=== PATIENT | male | born 1945 | race Caucasian/White ===

== ENCOUNTER 2024-01-12 13:15 | Observation (INO) | payer MEDICARE, OTHER, SELFPAY ==
[2024-01-12] VITALS (13 sets, daily range): BP systolic 95–118; BP diastolic 65–94; PULSE 65–83; BMI 26.7; BMI 24.5
[2024-01-12 09:38] LABS: % Basophils 0.8 % (0-2); % Eosinophils 3.5 % (0-6); % Immature Granulocytes 0.3 % (0-0.5); % Lymphocytes 17.5 % (20.5-51.1); % Monocytes 11.6 % (1.7-9.3); % Neutrophils 66.3 % (42.2-75.2); Absolute Basophils 0.1 10^3/uL (0-0.2); Absolute Eosinophils 0.2 10^3/uL (0-0.7); Absolute Lymphocytes 1.2 10^3/uL (1.2-3.4); Absolute Monocytes 0.8 10^3/uL (0.1-0.6); Absolute Neutrophils 4.4 10^3/uL (1.4-6.5); Hematocrit 36.1 % (39.0-52.0); Hemoglobin 12.4 g/dL (13.0-18.0); Mean Corp Hgb Conc. 34.3 g/dL (33.0-37.0); Mean Platelet Volume 9.9 fL (7.4-10.4); Nucleated Red Blood Cells % 0 % (-); Platelet Count 239 10^3/uL (130-400); Red Blood Cell Count 3.88 10^6/uL (4.70-6.10); Red Cell Dist. Width 13.2 % (11.5-14.5); White Blood Cell Count 6.6 10^3/uL (4.8-10.8)
--- NOTE | 2024-01-12 09:50 | ED.GENMED ---
History of Present Illness
General
Chief Complaint: Chest Pain
Source: patient and family
Exam Limitations: none
Time Seen by Provider: 01/12/24 08:45
Nursing documentation reviewed up to this point in time: agreed with
Travel History
Have you had any contact with someone who has COVID-19?: No
Do you have any symptoms of coronavirus? Fever > 100 degrees, chills, cough, shortness of breath, sore throat, loss of taste or smell, muscle aches, or headache?: No
History of Present Illness
History of Present Illness:
79-year-old male AF on Eliquis and Cardizem 180 twice daily follow with Dr. GABRIELLA Harper 10 days ago get up to use the [employer] room at night felt dizzy passed out struck his chest on the wall was covered in sweat no head strike, no neck pain since then has
had intermittent dizziness pain in his chest worse with movement and deep breath, no fever or chills, yesterday his heart rate was in the 1 teens, here is in the 50s, no hemoptysis, hematuria no abdominal pain
Past History
Past History
ED Past Medical History: Arrthythmia, HTN and Hypercholesterolemia
Social History
Tobacco: Non-smoker
Alcohol: None
Drug: None
Living: with family
Employment: Retired
Review of Systems
Review of Systems
All Other Systems: Not applicable
Constitutional: Denies fever or fatigue
EENT: Reports no symptoms
Respiratory: Reports trouble breathing; Denies cough or hemoptysis
Cardiac: Reports chest pain, palpitations and syncope; Denies diaphoresis
ABD/GI: Reports no symptoms; Denies abdominal pain or vomiting
: Reports no symptoms; Denies bleeding
Musculoskeletal: Reports other (Chest wall pain no neck pain)
Neurological: Reports dizzy
Phy Exam
Physical Exam
Physical Exam:
Physical Exam
General: no apparent distress, not acutely ill
Neck: No tongue bite no posterior neck
Heart: Cardiac, reproducible pain in the left anterior chest
Lungs: no acute respiratory distress. clear bilaterally
Abdomen: Soft nontender
Neuro: alert and oriented. no focal neurological deficits
Skin: no rash
Psychiatric: well kept. interactive and cooperative
Extremities: no edema. no calf tenderness.
Scores
Heart Score for Chest Pain Patients
STEMI patient?: No
History: Slightly or Non-Suspicious
ECG: Normal
Age: </= 45 years
Risk Factors: >/= 3 Risk Factors or History of CAD
Troponin: </= Normal Limit
Heart Score for Chest Pain Patients: 2
Heart Score Risk: 2.5% MACE over next 6 weeks
Course
Orders/Labs/Results
Orders:
Orders
01/12/24 Breakfast
Cholesterol Lowering
At Your Request: Full Participation
Cholesterol Lowering: Sodium, 2 Gram
01/12/24 08:28
Electrocardiogram (*1) Urgent
Reason for Study: Chest Pain
EKG- Treatment ONCE
01/12/24 09:32
CBC/With Diff [Complete Blood Count/With Diff] Urgent
Comprehensive Metabolic Panel Urgent
TSH Reflex To Free T4 Urgent
Comment: ADD ON
Troponin I Urgent
01/12/24 10:18
0.9% Sodium Chloride 1000 ml [Nss] 1,000 ml IV BOLUS
01/12/24 10:45
Acetaminophen [Tylenol] 650 mg PO NOW STA
01/12/24 11:12
CR Chest - 2 Views Urgent
Comment:
Reason For Exam: pain p fall
01/12/24 12:46
Admit/Transfer Patient As Directed
Co-Sign Provider:
Level of Care: Observation services
Assign to:: IVU
Physician / Group: AIMEE Mendiola
Diagnosis: chest bennett
01/12/24 12:47
Code Status As Directed
Resuscitation Status: Do not resuscitate
Reached after discussion with pt or family/Healthcare POA: Yes
DNR Bracelet Application ONCE
01/12/24 13:00
CR Ribs-left 2 Vw No Pa Chest Routine
Reason For Exam: left sided chest pain
01/12/24 13:00
CT Head W/o Iv Contrast Routine
Comment:
Reason For Exam: syncope
CARDIOLOGY CONSULT Routine
Consulting Provider: Lizzie Montoya
Was physician already notified: Yes
01/12/24 15:40
0.9% Sodium Chloride 1000 ml [Nss] 1,000 ml IV 100 mls/hr
01/12/24 15:40
Activity As Directed
Activity Level: As Tolerated
INT (Intravenous Needle Therapy) As Directed
Comment: maintain peripheral IV access
Intake/ Output As Directed
Frequency: Per unit guidelines
Orthostatic Vital Signs As Directed
Orthostatic VS Frequency: BID
Vital Signs As Directed
Frequency: q4h
Weight As Directed
Frequency: Daily
Pt Eval And Treat Routine
Activity Level: As Tolerated
01/12/24 16:00
Acetaminophen [Tylenol] 1,000 mg PO TID
01/12/24 16:28
Glycohemoglobin (HgbA1c) Routine
Troponin I Q6H
Comment: at admit & Q3H for 3 total including ED draws, obtain ECG with each level
01/12/24 22:00
Losartan [Cozaar] 50 mg PO HS
01/12/24 22:18
Troponin I Q6H
Comment: at admit & Q3H for 3 total including ED draws, obtain ECG with each level
01/13/24 03:04
Basic Metabolic Panel IN AM
Cardiovascular Evaluation IN AM
Complete Blood Count/No Diff IN AM
01/13/24 08:00
Atorvastatin [Lipitor] 20 mg PO DAILY
Magnesium Oxide 250 mg PO DAILY
Multivitamin [Theragran] 1 tablet PO DAILY
Spironolactone [Aldactone] 12.5 mg PO DAILY
01/14/24 11:00
DC Protocol for Telemetry ONCE
Abnormal Lab Results
01/12/24
09:32
RBC 3.88 L 10^6/uL
(4.70-6.10)
Hgb 12.4 L g/dL
(13.0-18.0)
Hct 36.1 L %
(39.0-52.0)
MCH 32.0 H pg
(27.0-31.0)
Absolute Monos (auto) 0.8 H 10^3/uL
(0.1-0.6)
Lymphocytes % 17.5 L %
(20.5-51.1)
Monocytes % 11.6 H %
(1.7-9.3)
BUN 21 H mg/dl
(9-20)
Glucose 102 H mg/dl
(70-99)
Alkaline Phosphatase 31 L U/L
(38-126)
Total Protein 6.1 L g/dl
(6.3-8.2)
01/12/24 09:32
01/12/24 09:32
Vital Signs
Initial and Last Documented VS:
Initial Vital Signs
Temp Pulse Resp BP Pulse Ox
97.8 F 56 18 104/70 97
01/12/24 08:36 01/12/24 08:36 01/12/24 08:36 01/12/24 08:36 01/12/24 08:36
Last Documented Vital Signs
Temp Pulse Resp BP Pulse Ox
97.8 F 87 20 122/97 97
01/13/24 11:55 01/13/24 13:30 01/13/24 11:55 01/13/24 11:56 01/13/24 11:55
MDM/Problems Addressed
Differential Diagnosis Includes:
Syncope heart block rib contusion pneumothorax possible ACS PE unlikely
MDM/Problems Addressed:
Chest pain shortness of breath syncope
Chronic conditions affecting care: Arrhythmia
Acute Exacerbation and/or Progression of Chronic Illness: Arrhythmia
*Radiology
Radiology exam reviewed: preliminary read by ED provider
*Pulse Oximetry
Patient hypoxic: no
*EKG
Interpreted by ED Provider?: Yes
Interpretation: abnormal
Comparison EKG: changes noted
Heart Rate: 48
Rate: bradycardiac
Rhythm: a-fib
Ischemia: non-specific ST changes
*Systems Development Manager Interpretation
Rate: bradycardiac
Interpretation: abnormal
Heart Rate: 48
Rhythm: a-fib
*Critical Care Note
Total Time (30-74mins, 75-104mins- exclusive of procedures): Not Applicable
Update Note
Update Note:
1210 chest x-ray noted labs noted cardiac monitor technician noted persistently with slow AF had a documented syncope is on calcium channel rupinder I believe it would be beneficial to admit him to a monitored bed, let his meds washout, consideration for
specialty consultations. Feel he had some tachycardia earlier
ED Attending Note
-
Portions of this chart may have been created with voice recognition software.� Occasional wrong word or��sound alike� substitutions may have occurred due to the inherent limitations of voice recognition software.
Discharge Plan
Departure
Patient Disposition: Admit
Date of Disposition: 01/12/24
Time of Disposition: 12:11
Admit to: Telemetry
Presentation/result/management discussed w/ accepting MD/DO: Hospitalist
Patient with high blood pressure during this ER visit?: No
Condition: Fair
Discharge Problem:
Syncope and collapse, Atrial fibrillation, Hypotensive episode
Interventions
Interventions:
*Risk Screen - Suicide Last Done: 01/12/24 08:47
*General Assessment Last Done: 01/12/24 08:47
*Neglect/Abuse Screening Last Done: 01/12/24 08:47
ED- Fall Risk Assessment Last Done: 01/12/24 10:57
*ED COVID-19 Vaccine History Last Done: 01/12/24 08:47
*Nursing Disposition Last Done: 01/12/24 15:46
ED- Cardiac Assessment Last Done: 01/12/24 08:47
Discharge Date and Time
Discharge Date/Time: 01/12/24 15:46
[2024-01-12 09:51] LABS: ALT (SGPT) 18 U/L (0-50); AST (SGOT) 24 U/L (17-59); Albumin 3.6 g/dl (3.5-5.0); Alkaline Phosphatase 31 U/L (38-126); Blood Urea Nitrogen 21 mg/dl (9-20); Calcium 8.6 mg/dl (8.4-10.2); Carbon Dioxide 26 mmol/L (22-30); Chloride 107 mmol/L (98-107); Estimated Creatinine Clearance 71 ml/min; Glucose 102 mg/dl (70-99); Potassium 4.6 mmol/L (3.5-5.1); Sodium 135 mmol/L (135-145); Total Bilirubin 0.6 mg/dl (0.2-1.3); Total Protein 6.1 g/dl (6.3-8.2); eGFR > 60.00
[2024-01-12 10:03] LABS: Troponin I < 0.012 ng/ml
[2024-01-12] MEDS: NSS 1000 IV ×2 (10:21→16:03)
[2024-01-12] MEDS: TYLENOL 650 MG PO (10:48)
--- NOTE | 2024-01-12 12:19 | HPS.HSE ---
Addendum entered and electronically signed by Zeeshan Muniz MD 01/12/24 13:40:
I saw and examined the patient.
The BALANCE BRIDGE ASSEMBLER's note was reviewed and I agree with the note.
Comment:
I saw and examined the patient.
The BALANCE BRIDGE ASSEMBLER's note was reviewed and I agree with the note.
Comment:
79-year-old male past medical history of permanent atrial fibrillation is presenting from home with left-sided chest pain. Patient had episode of syncope 10 days ago where he had a loss of consciousness for few seconds subsequently afterwards he
was found to be diaphoretic. Patient dates that he had his chest on the wall of the furniture. Patient stated last night his pain got worse. Patient stated was seen by his video game technician outpatient recently and plan was to decrease dose of Cardizem.
General:�Well Developed, Well Nourished and No Apparent Distress
HEENT:�NormoCephalic, Moist mucous membranes and Atraumatic
Respiratory:�Clear
Cardiac:�Irregular Rhythm and Bradycardia; No Murmur or Rub
GI:�Soft, Non Tender, Non Distended and Normal Bowel Sounds; No Organomegaly
Rectal:�Deferred by Provider
Musculoskeletal:�No Clubbing, No Cyanosis and No Edema
Skin:�No Rash
Neuro:�AO x 3 and Nonfocal/grossly intact
Psych:�Calm
Impression
Syncope likely multifactorial due to bradycardia versus orthostatic hypotension versus rule out arrhythmia
Left-sided chest pain likely secondary to rule out ACS and rule out rib fractures
Permanent atrial fibrillation
Primary hypertension
hyperlipidemia
chronic coagulopathy with Eliquis
Plan
Check CT of the head
Check left-sided rib cage imaging study
Hold AV denis rupinder agents
Restart Eliquis if CT negative
Check orthostatics
Trend ammonia
Monitor on telemetry
Start gentle IV fluids
Continue Lipitor
DVT ppx-eliquis
Original Note:
Family Physician
-
Family Physician: Sonido Quinn
Chief Complaint
-
chest pain
History of Present Illness
79-year-old male AF on Eliquis and Cardizem 180 twice daily,HEENT hypertension, hyperlipidemia, hypertension, hyperlipidemia follow with Dr. GABRIELLA Harper presented to us with left sided chest pain for past ten days since the fall . patient got up to use
the bathroom 10 days ago, he felt dizzy, lightheaded and fell. he lost the level of consciousness. he was sweating. his woke him up. he hit chest on the wall or the furniture. he was taking aleve and Tylenol with some relief in his symptoms.
last night his pain got worse. worse with moving which prompted him to come to the ER. patient stated short of breath this morning. Patient denied hitting his head. Patient denied runny nose, congestion, cough. Patient denied any fever, chills.
Patient denied abdominal pain, nausea, vomiting. Stated chronic diarrhea. Denied dysuria hematuria. Patient stated right-sided testicular pain 10 days ago, patient not sure if the pain caused him to faint. He does not have testicular pain
anymore. Patient stated his heart rate was in 100s last night.
On arrival to ER patient was hypotensive, bradycardia. Chest x-ray with no acute disease. Admitting for further management.
Medical History
Past Medical History
Past Medical History: Reports Other
Additional Past Medical History:
Permanent A-fib
Hypertension
Hyperlipidemia
Past Surgical History: Reports Other
Additional Past Surgical History:
Sinus surgery
Social History
Tobacco: Non-smoker
Alcohol: Occasional
Drug: None
Personal:
Living: With Family
Family History
Family History: Not pertinent
Allergies / Home Medications
Allergies reflects when Allergies were last updated in [facility].
Home Medications with original date entered in [facility]
Allergy/Medication List:
Allergies
Allergy/AdvReac Type Severity Reaction Status Date / Time
amiodarone Allergy Intermediate Shortness Verified 01/12/24 08:36
of Breath
carvedilol AdvReac Severe toxicity Verified 01/12/24 08:36
Home Medications
magnesium oxide 250 mg PO DAILY 07/09/11
apixaban 5 mg tablet (Eliquis) 5 mg PO BID 02/21/19
spironolactone 25 mg tablet 12.5 mg PO DAILY 04/02/20
atorvastatin 20 mg tablet 20 mg PO DAILY 01/12/24
diltiazem HCl 180 mg capsule,extended release 24 hr, controlled (DILT-XR) 180 mg PO BID 01/12/24
losartan 50 mg tablet 50 mg PO HS 01/12/24
therapeutic multivitamin 1 tab PO DAILY 01/12/24
Review of Systems
-
Constitutional: Reports No Symptoms
EENT: Reports No Symptoms
Respiratory: Reports Trouble Breathing
Cardiac: Reports Chest Pain
Abdomen/GI: Reports No Symptoms
: Reports Other (Pain)
Musculoskeletal: Reports No Symptoms
Skin: Reports No Symptoms
Neurological: Reports No Symptoms
Endocrine: Reports No Symptoms
Hematologic/Lymphatic: Reports No Symptoms
Psych: Reports No Symptoms
Physical Exam
Vital Signs
Vital Signs
Temp Pulse Resp BP Pulse Ox
97.8 F 50 23 103/80 97
01/12/24 08:36 01/12/24 12:11 01/12/24 12:11 01/12/24 12:11 01/12/24 10:45
Physical Exam
General: Well Developed, Well Nourished and No Apparent Distress
HEENT: NormoCephalic, Moist mucous membranes and Atraumatic
Respiratory: Clear
Cardiac: Irregular Rhythm and Bradycardia; No Murmur or Rub
GI: Soft, Non Tender, Non Distended and Normal Bowel Sounds; No Organomegaly
Rectal: Deferred by Provider
Musculoskeletal: No Clubbing, No Cyanosis and No Edema
Skin: No Rash
Neuro: AO x 3 and Nonfocal/grossly intact
Psych: Calm
Laboratory Results
-
01/12/24 09:32
01/12/24 09:32
Laboratory Results
Total Bilirubin 0.6 mg/dl (0.2-1.3) 01/12/24 09:32
AST 24 U/L (17-59) 01/12/24 09:32
ALT 18 U/L (0-50) 01/12/24 09:32
Alkaline Phosphatase 31 U/L (38-126) L 01/12/24 09:32
Troponin I < 0.012 ng/ml 01/12/24 09:32
Data Reviewed
-
Diagnostic Radiology: Report Reviewed by me
Lab Data: Labs Reviewed by me
Impression/Plan
-
#atrial fibrillation with slow RVR
-EKG with atrial fib with slow RVRs
-HR in 50's
-Hold diltiazem
-Eliquis hold until CT head resulted
-cardiology consulted
#left sided chest pain likely muscular
-trop negative
-continue to trend trop
-chest xay negative
-obtain rib cage x ray
-Tylenol ATC for pain
#syncope unclear cause
-Obtain orthostatics
-CT head pending
-PT consult
#hypotension/history of essential hypertension
-low blood pressure on arrival, improved
-Continue losartan with parameters
-Spironolactone continued with parameters
# Hyperlipidemia
-Statin continued
# DVT prophylaxis
-scd
# CODE STATUS
-DNR
--- NOTE | 2024-01-12 15:24 | CON.CAR ---
Addendum entered and electronically signed by Crissy Barnhart MD 01/12/24 16:50:
I saw and examined the patient.
The Form Maker's note was reviewed and I agree with the note.
Comment: Briefly, Mr. Fuller is a 79-year-old gentleman with past medical history of permanent atrial fibrillation, multiple prior PVI's, most recently in 2019, on chronic anticoagulation with Eliquis, prior history of a nonischemic cardiomyopathy,
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 Patient tells me that
upon trying to get out of bed to go to the bathroom he had some lightheadedness and then passed out transiently. He tells me he has had multiple prior episodes similar to this. He did not pass out while waiting but on his way back. He fell
forward and thinks he may have hurt his chest however denies hurting his head. His imaging including head CT, rib x-ray and chest x-ray did not show any concerns for any acute fractures. His chest discomfort is very positional in nature with a
pleuritic component. He denies any exertional component to it. Cardiology was consulted after an EKG in the emergency department showed atrial fibrillation with a slow ventricular rate.
Vital signs and lab work is reviewed. Initial troponin is negative. ECG with no acute ischemic changes. Patient is a pleasant older gentleman in no acute distress, ANO x 3, normal S1 and S2, no significant murmurs, rubs or gallops, lungs are
clear to auscultation, I was not able to reproduce chest wall tenderness, abdomen is soft, nontender, nondistended, warm extremities without significant edema.
Recommendations:
1. We will check orthostatic vital signs.
2. Continue to monitor on telemetry. We will decrease his Cardizem to a lower dose. So far there is no evidence of heart block or severe bradycardia that is symptomatic. For now we will continue his home anticoagulation given no active signs
concerning that he needs a permanent pacemaker for now.
3. We will check a more up-to-date echocardiogram to reassess biventricular function and his valves.
Crissy Barnhart MD, [facility], [facility]
Original Note:
Consultation
Consultation Request
Date/Time Consultation Performed: 01/12/24
Requesting Provider: Dr. Muniz
Performing Provider: Greer Brian PA-C for Dr. Montoya
Reason for Consultation: syncope, bradycardia, CP
Medical History
-
Chief Complaint: CP
History of Present Illness:
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
who had a syncopal event approximately 10 days ago. He states that in the middle of the night he got up to go to the bathroom and felt dizzy however made it into the bathroom. Upon walking back to his bed, he passed out and hit some furniture. He
did not seek medical attention immediately after the event. Morning after he states he had some testicular pain which is still present although not as severe as initially. He reported since then he has continued with some left-sided chest
discomfort, which has gotten worse over the last day or so causing him to come in to the ER for evaluation. He reports the pain is jabbing in nature, and occurs when he takes a deep breath or when he moves. On arrival in the ER was noted to have
some bradycardic heart rates in the 50s. Last night he reported his heart rate was in the 110s at home. On Cardizem CD 180 mg p.o. BID. Reports chest discomfort improved s/p tylenol. Cardiology consulted for evaluation
PMH:
Permanent atrial fibrillation
History of pulmonary vein isolation 2016, 2018, 2019
Chronic anticoagulation with Eliquis
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
Hypertension
Hypercholesterolemia
Past Medical History
Past Medical History: Other (in HPI)
Social History
Tobacco: Non-Smoker
Alcohol: Occasional
Personal:
Living: With Family
Employment: Retired
Allergies / Home Medications
Allergy/AdvReac Type Severity Reaction Status Date / Time
amiodarone Allergy Intermediate Shortness Verified 01/12/24 08:36
of Breath
carvedilol AdvReac Severe toxicity Verified 01/12/24 08:36
Medication Instructions Recorded Confirmed Type
magnesium oxide 250 mg PO DAILY Electrolyte 07/09/11 01/12/24 History
Repletion
apixaban 5 mg tablet (Eliquis) 5 mg PO BID Blood Clot 02/21/19 01/12/24 History
Prevention/Tx
spironolactone 25 mg tablet 12.5 mg PO DAILY Heart Failure 04/02/20 01/12/24 History
atorvastatin 20 mg tablet 20 mg PO DAILY High Cholesterol 01/12/24 01/12/24 History
diltiazem HCl 180 mg 180 mg PO BID Arrhythmia 01/12/24 01/12/24 History
capsule,extended release 24 hr,
controlled (DILT-XR)
losartan 50 mg tablet 50 mg PO HS Heart Failure 01/12/24 01/12/24 History
therapeutic multivitamin 1 tab PO DAILY Supplement 01/12/24 01/12/24 History
Review of Systems
-
History Source: Patient
All other systems: Negative unless noted
Physical Exam
Vital Signs
Temp Pulse Resp BP Pulse Ox
97.8 F 55 16 105/65 97
01/12/24 08:36 01/12/24 15:17 01/12/24 15:17 01/12/24 15:16 01/12/24 10:45
Lab Results
01/12/24 09:32
01/12/24 09:32
Troponin I < 0.012 ng/ml 01/12/24 09:32
Physical Exam
General: No Apparent Distress and Comfortable
HEENT: Normocephalic, Anicteric and Moist Mucous Membranes
Respiratory: Clear and Non Labored Respirations
Cardiac: S1/S2 and Irregular Rhythm
GI: Soft, Non Tender, Non Distended and Normal Bowel Sounds
Musculoskeletal: No Clubbing, No Cyanosis and No Edema
Skin: Warm and Dry
Neuro: AO x 3
Impression / Plan
-
Primary Cupola Patcher: Dr. GABRIELLA Harper
Assessment:
Presentation with L sided chest pain
Negative trop x1
Bradycardia
Recent syncopal episode ~10 days ago
Permanent atrial fibrillation
History of pulmonary vein isolation 2016, 2018, 2019
Chronic anticoagulation with Eliquis
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
Hypertension
Hypercholesterolemia
ECHO 12/09/2021: EF 57%, moderate concentric LVH, mild MR
Plan:
-Patient presents with left-sided chest discomfort in the setting of recent syncopal episode. Was noted to be bradycardic in A-fib in the ER. no present dizziness
-chest Xray without clear rib fractures. head CT negative for acute abnormality
-reports CP improved s/p tylenol
-Troponin negative x 1
-EKG A-fib with slow ventricular response
-Chest discomfort suspected musculoskeletal as worsening with movement and inspiration
-Follow on telemetry
-Check echo
-Check TSH
-Hold outpatient Cardizem. He has previous intolerance to carvedilol and amiodarone
-Check orthostatic vital signs
-May consider outpatient classroom monitor upon discharge
Data Reviewed
-
EKG: Tracing Personally Visualized and interpreted
Radiology: Report Reviewed by me
CT Scan: Report Reviewed by me
Medical Tests (Nuc Med, Echo etc): Report Reviewed by me
Labs: Labs Reviewed by me
Old Records: Reviewed
--- NOTE | 2024-01-12 16:00 | PTCARENOTE ---
Pt received from ED via stretcher. AOx3. Orthostatic VS obtained, no tilt. Walked to BR w/ standby assist, denies feeling lightheaded, denies CP. Slightly tender to palpation L upper chest, reports 11/23. Denies SOB, 98% on RA. A fib on the monitor
60-70's. Full assessment and admission as documented.
[2024-01-12] MEDS: TYLENOL 1000 MG PO ×2 (16:02→22:12)
[2024-01-12 17:00] LABS: Troponin I < 0.012 ng/ml
[2024-01-12 17:01] LABS: TSH Reflex To Free T4 3.81 uIU/ml (0.47-4.68)
[2024-01-12] MEDS: ELIQUIS 5 MG PO (20:09)
[2024-01-12] MEDS: COZAAR 50 MG PO (22:12)
[2024-01-12 22:49] LABS: Troponin I < 0.012 ng/ml
[2024-01-13] VITALS (11 sets, daily range): BP systolic 113–139; BP diastolic 94–106; PULSE 80–93; O2SAT 95; BMI 24.3
--- NOTE | 2024-01-13 00:43 | PTCARENOTE ---
Received pt at handoff. AOX3. Tele- Afib. HR 60-80s. Assessment noted as documented. NSS 100ml/hr infusing. Pt ambulatory to bathroom w/ standby assist. Offers no complaints of dizziness/discomfort. Currently in bed; call lundy w/in reach.
[2024-01-13] MEDS: NSS 1000 IV (01:28)
[2024-01-13 03:36] LABS: Hemoglobin 12.8 g/dL (13.0-18.0); Mean Corp Hgb Conc. 34.6 g/dL (33.0-37.0); Mean Corpuscular Hgb 32.5 pg (27.0-31.0); Mean Corpuscular Volume 93.9 fL (80.0-94.0); Mean Platelet Volume 10.6 fL (7.4-10.4); Platelet Count 237 10^3/uL (130-400); Red Blood Cell Count 3.94 10^6/uL (4.70-6.10); Red Cell Dist. Width 13.1 % (11.5-14.5)
[2024-01-13 04:00] LABS: Blood Urea Nitrogen 18 mg/dl (9-20); Calcium 8.6 mg/dl (8.4-10.2); Carbon Dioxide 24 mmol/L (22-30); Chloride 110 mmol/L (98-107); Estimated Creatinine Clearance 80 ml/min; Glucose 92 mg/dl (70-99); HDL Cholesterol 47 mg/dl; LDL Cholesterol, Calculated 53 mg/dl; Potassium 4.5 mmol/L (3.5-5.1); Sodium 137 mmol/L (135-145); Total Cholesterol 116 mg/dl (50-199); Triglyceride 83 mg/dl (10-149); Very Low Density Lipoprotein 16 mg/dl (0-30); eGFR > 60.00
[2024-01-13 04:49] LABS: Hepatitis C Antibody Negative (Negative)
--- NOTE | 2024-01-13 08:08 | W.PN.CARDCBS ---
Addendum entered and electronically signed by Greer Brian PA-C 01/13/24 13:38:
echo without significant change compared to prior, EF preserved.
increase cardizem cd to 120mg BID. stop OP losartan
arranged for OP Bardy monitor to be placed in office on Monday 01/15
Original Note:
Today's Communication / Plan
-
Await echo
Stop losartan
May need to increase diltiazem
Outpatient monitor
Anticipate discharge later today pending echo
Impression / Plan
-
Primary Appellate Conferee: Dr. GABRIELLA Harper
Assessment:
Presentation with L sided chest pain
Permanent atrial fibrillation
Recent syncopal episode ~10 days ago, suspect vagally mediated/possible micturition syncope
History of pulmonary vein isolation 2016, 2018, 2019
Chronic anticoagulation with Eliquis
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
Hypertension/possibly hypotensive on losartan
Hypercholesterolemia
ECHO 12/09/2021: EF 57%, moderate concentric LVH, mild MR
Plan:
He presents with syncope from 2 weeks ago resulting in a chest wall injury. He was bradycardic upon presentation here in the emergency department on diltiazem ER 360 mg a day, in the setting of chest pain, but his only episode of lightheadedness
was 2 weeks ago in the setting of pain, and I think a vagal mechanism/micturition syncope may have been the operative medicine mechanism rather than bradycardia from diltiazem, as he reports that his heart rate had been well-controlled on diltiazem
ER 180 mg twice daily. In addition he was relatively hypotensive at the last office visit, on losartan.
.
We will await his echocardiogram.
.
I will stop his losartan at the present time, and he may need higher dose of diltiazem at discharge. Will arrange for an outpatient monitor and outpatient follow-up.
He still has vague discomfort in his right testicle, which was present at the time of his syncope. Defer to hospitalist whether or not this requires investigation.
Anticipate discharge later today. Will need to decide proper diltiazem dose. Will discharge him off losartan.
Progress Note - Appellate Conferee
Subjective
Date of Service: January 13, 2024:
Some chest discomfort, but not severe, minimal residual awareness of right testicle
Allergies: Amiodarone and carvedilol
Home meds: Atorvastatin 20 mg a day, diltiazem ER 180 mg twice daily, Eliquis 5 mg twice daily, losartan 50 mg daily, magnesium oxide, spironolactone 12.5 mg daily and multivitamins
Current meds atorvastatin 20 mg daily, losartan 50 mg at bedtime, magnesium, spironolactone 12.5 mg daily, apixaban 5 mg twice daily, diltiazem ER 120 mg daily
PMH/PSH/SH/FH: Reviewed
Review of systems: Negative except as above
Hemoglobin 12.8, platelets 237, potassium 4.5, BUN/creatinine 18 and 0.86, GFR greater than 60, undetectable troponin, proBNP pending
Telemetry: No pauses, heart rate now at the upper limit of acceptable
Diltiazem had been 360 mg a day, now 120 mg a day
Objective
Labs:
01/13/24 03:04
01/13/24 03:04
Labs
Hgb 12.8 g/dL (13.0-18.0) L 01/13/24 03:04
Hct 37.0 % (39.0-52.0) L 01/13/24 03:04
Plt Count 237 10^3/uL (130-400) 01/13/24 03:04
Sodium 137 mmol/L (135-145) 01/13/24 03:04
Potassium 4.5 mmol/L (3.5-5.1) 01/13/24 03:04
BUN 18 mg/dl (9-20) 01/13/24 03:04
Creatinine 0.8 mg/dL (0.7-1.3) 01/13/24 03:04
Glucose 92 mg/dl (70-99) 01/13/24 03:04
Troponins
01/12/24 01/12/24 01/12/24
09:32 16:28 22:18
Troponin I < 0.012 < 0.012 < 0.012
Vital Signs and I&O:
Vital Signs
Temp Pulse Resp BP Pulse Ox
36.3 C 69 16 113/95 96
01/13/24 03:10 01/13/24 03:30 01/13/24 03:10 01/13/24 02:58 01/13/24 03:10
Vital Signs
Temp Pulse Resp BP Pulse Ox
36.3 C 69 16 113/95 96
01/13/24 03:10 01/13/24 03:30 01/13/24 03:10 01/13/24 02:58 01/13/24 03:10
Intake & Output
01/11/24 01/12/24 01/13/24 01/14/24
07:59 07:59 07:59 07:59
Intake Total 680 / 680
Balance 680 / 680
Physical Exam
Physical Exam
113/95, pulse 69, respirate 16, afebrile
No acute distress, heart rate now 100, head neck exam unremarkable, lungs are clear, cardiac regular rate and rhythm, no obvious murmurs, abdomen benign extremities without clubbing cyanosis or edema, pulses intact, neuro nonfocal
[2024-01-13] MEDS: MAGNESIUM OXIDE 250 MG PO (08:42)
[2024-01-13] MEDS: LIPITOR 20 MG PO (08:42)
[2024-01-13] MEDS: ALDACTONE 12.5 MG PO (08:43)
[2024-01-13] MEDS: ELIQUIS 5 MG PO (08:43)
[2024-01-13] MEDS: CARDIZEM CD 120 MG PO (08:43)
[2024-01-13] MEDS: THERAGRAN 1 TABLET PO (08:43)
[2024-01-13] MEDS: TYLENOL PO (08:43)
--- NOTE | 2024-01-13 10:35 | PTOTSP ---
Pt is independent and at functional baseline. PT will sign off.
[2024-01-13 11:15] LABS: Glycohemoglobin (HgbA1c) 6.2 % (4.0-5.6)
--- NOTE | 2024-01-13 12:29 | W.PN.HOSP.TC ---
Addendum entered and electronically signed by Zeeshan Muniz MD 01/13/24 13:30:
Patient echocardiogram results noted. Case discussed with Dr. Harper tile power shear operator. Okay to discharge patient home. Cardiology recommended discontinue losartan and continue patient on Cardizem at 120 mg and increase frequency to twice daily.
Outpatient Holter monitor will be arranged by cardiology.
More than 30 minutes spent in discharge including
Final examination of the patient
Summarizing hospital stay
Instructions for continuing care to all relevant caregivers
Preparation of discharge records, prescriptions, and referral forms
Total time spent (in minutes): 45
Original Note:
Today's Communication/Plan
-
await ECHO
Monitor BP/HR
DC losartan
Assessment / Plan
Assessment / Plan
#atrial fibrillation with slow RVR
-EKG with atrial fib with slow RVRs
-HR now elevated and cardizem restarted at 120mg
-Cont eliquis
-cardiology consulted
#left sided chest pain likely muscular
-trop negative
-continue to trend trop
-chest� xay negative
-obtain rib cage x ray-neg for rib fx
-Tylenol ATC for pain
#syncope likely 2/2 orthostatic vs.micturition syncope vs bradycarida
-CT head negative.
-PT consult
-Orthos neg now. s/p IVF.
-Trop noted.
-ECHO ordered and pending.
-cards on board.
#hypotension/history of essential hypertension
-low blood pressure on arrival, improved
-DC losartan
-Spironolactone continued with parameters
# Hyperlipidemia
-Statin continued
# DVT prophylaxis
-scd
# CODE STATUS
-DNR
Anticipated Discharge: Within 24 hours
Subjective/Interval History
-
Date of Service: January 13, 2024
States worked with physical therapy earlier today
Denies any lightheaded dizziness
States her chest discomfort due to musculoskeletal pain has improved
Currently comfortable
Blood pressure stabilized
Heart rate elevated to 90s
Objective Data
-
Labs:
Laboratory Results
01/13/24
03:04
WBC 6.0
Hgb 12.8 L
Hct 37.0 L
Plt Count 237
Sodium 137
Potassium 4.5
Chloride 110 H
Carbon Dioxide 24
BUN 18
Creatinine 0.8
Glucose 92
Calcium 8.6
Vital Signs:
Vital Signs
Temp Pulse Resp BP Pulse Ox
97.8 F 89 20 139/98 97
01/13/24 11:55 01/13/24 11:45 01/13/24 11:55 01/13/24 10:19 01/13/24 11:55
I&O
01/12/24 01/13/24 01/14/24
06:59 06:59 06:59
Intake Total 680 / 680
Balance 680 / 680
Physical Exam
-
General: Well Developed and No Apparent Distress
HEENT: Normocephalic, Atraumatic and Moist Mucous Membranes
Respiratory: Clear to Auscultation
Cardiac: Regular Rhythm and S1/S2; Negative Murmur, Rub or Gallop
GI: Soft, Nontender, Nondistended and Normal Bowel Sounds; Negative Organomegaly
Rectal: Deferred by Provider
Musculoskeletal: No Clubbing, No Cyanosis and No Edema
Skin: Negative Rash
Neuro: Awake, Alert, Oriented, AO x 3, No Motor Deficits and Nonfocal/Grossly Intact
Psych: Calm
--- NOTE | 2024-01-13 12:46 | CM ---
CM following for DC planning needs.
Met w/ patient at bedside to complete initial assessment.
Pt. reports that he resides in a private, [address] st. home w/ spouse. Functionally, patient is indep. w/ ADLs, mobility without the use of any assisted device. Pt. has CPAP at home, which he uses regularly.
[facility] letter provided, discussed-signed copy placed in chart.
Anticipated DC plan is for home without needs.
Will remain avail.
--- NOTE | 2024-01-13 13:41 | W.DCSUMMARY ---
Discharge Summary
Discharge Data
Date of Admission: 01/12/24
Date of Discharge: 01/13/24
-
Pending Results: No
Hospital Course
79-year-old male past medical history of A-fib, hypertension, hyperlipidemia who is presenting from home with left-sided musculoskeletal chest pain. Patient is a he had episode of syncope while he was in the bathroom 10 days prior to arrival. He
felt and hit his chest against furniture or wall. Patient had testicular pain at home which has resolved. Patient upon admission was found to have mild hypotension with bradycardia. Cardiology was consulted. Patient received IV fluid
resuscitation. Orthostatic was checked and found to be negative. CT of the head was checked and found to be negative for acute pathology. Patient was eval by PT and patient ambulated without difficulty. Patient denies lightheadedness or
dizziness. Patient underwent echocardiogram without any significant changes with EF of 59%. Hypokinesis of the basal inferior and inferolateral segments. Mild LVH. Diastolic function indeterminate due to A-fib. Mild tricuspid vegetation. PASP
24 mmHg. Compared to prior study 12/09/2021 no significant change. Losartan was discontinued. Per cardiology Cardizem can be restarted at a reduced dose of 120 mg twice daily. Patient will have Holter monitor set up as outpatient. Patient was
ambulating, blood pressure and vitals were stable. Patient without any lightheaded dizziness or discharged home with outpatient cardiology follow-up.
Discharge Plan
-
Patient Disposition: Home (Routine Discharge)
Discharge Diagnosis/Procedures: Syncope likely secondary to micturition vs. orthostatic
Left-sided musculoskeletal chest pains
Condition: Fair
Diet: As tolerated
Activity: With assistance and As tolerated
Others Tests: Bardy 7 day quality assurance monitor to be placed at [facility] [address] on Tuesday01/16/24 @10AM
Stop these medications:: stop losartan
Activity Restrictions/Additional Instructions:
Bardy 7 day quality assurance monitor to be placed at [facility] office [address] on Tuesday01/16/24 @10AM
Referrals:
Sonido Quinn MD [Family Provider] - in less than 1 week
Patricia Guzman PA-C [Specified Professional Personl] - 01/31/24 2:00 pm (You have a cardiology follow-up appointment at the [place] office with Dr. Harper's physician assistant clinical nurse manager, Patricia. Please call with questions)
Prescriptions:
New
diltiazem HCl [Cardizem CD] 120 mg capsule,extended release 24hr
120 mg PO BID 30 Days Qty: 60 0RF
Continued
magnesium oxide 250 MG tablet
250 mg PO DAILY
Eliquis 5 MG tablet
5 mg PO BID
spironolactone 25 MG tablet
12.5 mg PO DAILY
atorvastatin 20 mg Tablet
20 mg PO DAILY
therapeutic multivitamin Tablet
1 tab PO DAILY
Discontinued
losartan 50 mg Tablet
50 mg PO HS
diltiazem HCl [DILT-XR] 180 mg Capsule,Ext.Rel 24h Degradable
180 mg PO BID
Discharge Orders:
Discharge Patient (As Directed); Ordered 01/13/24
Ordered By: Zeeshan Muniz
Care Plan Goals
Care Plan Goals:
Problem: Readiness for enhanced knowledge related to diagnosis and treatment plan
Goal: Understand your diagnosis and treatment plan needs, including medications if applicable.
Instructions: Know your diagnosis, underlying causes and treatment plan options, including medications if applicable. Consult with your health care team to learn about your diagnosis and treatment plan, including medications if applicable.
Discharge Date and Time
Discharge Date/Time: 01/13/24 14:35
== END 2024-01-13 14:35 | disposition home or self-care (01) ==
LOC: IVU 13:15
PROVIDERS: Registered Nurse; ADMITTING PHYSICIAN Hospitalist; CONSULT PHYSICIAN Internal Medicine Cardiovascular Disease; EMERGENCY PHYSICIAN Emergency Medicine; FAMILY PHYSICIAN Family Medicine
DX: R55 Syncope and collapse (principal); R07.89 Other chest pain; I48.91 Unspecified atrial fibrillation; R42 Dizziness and giddiness; I10 Essential (primary) hypertension; E78.00 Pure hypercholesterolemia, unspecified; E78.5 Hyperlipidemia, unspecified; I95.9 Hypotension, unspecified; R00.1 Bradycardia, unspecified; Z79.01 Long term (current) use of anticoagulants; Z66 Do not resuscitate; Z88.8 Allergy status to other drugs, medicaments and biological substances
CPT/HCPCS: 70450; 71046; 71100; 80048; 80053; 80061; 83036; 84443; 84484; 85025; 85027; 86803; 93005; 93306; 94660; 96360; 97161; 99285; G0378